=== PATIENT | male | born 1955 | race Caucasian/White ===

== ENCOUNTER 2018-04-21 11:36 | Day surgery (SDC) | payer OTHER ==
[2018-04-21] MEDS ORDERED: PROPOFOL 80 ML (13:39)
== END 2018-04-21 14:17 | disposition home or self-care (01) ==
LOC: GIL 11:36
DX: Z12.11 Encounter for screening for malignant neoplasm of colon (principal); D12.6 Benign neoplasm of colon, unspecified
CPT/HCPCS: 45380; 88305